=== PATIENT | female | born 1995 | race Caucasian/White ===

== ENCOUNTER 2019-12-03 01:42 | Emergency (ER) | payer OTHER ==
[~2019-12-03] VITALS: Ht 157.5 cm; Wt 75.0 kg
[2019-12-03 01:46] VITALS: BP 130/86
[2019-12-03] MEDS ORDERED: PAXIL (01:49)
--- NOTE | 2019-12-03 01:55 | NUR ---
PT SEATED IN CHAIR AT NURSES STATION, CLOSE OBSERVATION, IS PLEASANT AND COOPERATIVE, TEARFUL AND TALKING ON PHONE CURRENTLY. AWARE OF PLAN OF CARE AND PROCESS.
[2019-12-03 02:16] LABS: BASOPHILS # (AUTO) 0.05 x10^3/uL (0-0.1); BASOPHILS % (AUTO) 1 % (0-1); EOSINOPHILS # (AUTO) 0.22 x10^3/uL (0-0.4); EOSINOPHILS % (AUTO) 2 % (1-7); LYMPHOCYTES # (AUTO) 3.41 x10^3/uL (1-3.4); LYMPHOCYTES % (AUTO) 30 % (22-44); MD NO; MEAN CORPUSCULAR HEMOGLOBIN 29.6 pg (27.0-34.8); MEAN CORPUSCULAR VOLUME 89.7 fL (80-100); MEAN PLATELET VOLUME 8.3 fL (7.4-10.4); MONOCYTES # (AUTO) 0.53 x10^3/uL (0.2-0.8); MONOCYTES % (AUTO) 5 % (2-9); NEUTROPHILS # (AUTO) 7.05 x10^3/uL (1.8-6.8); NEUTROPHILS % (AUTO) 63 % (42-75); PLATELET COUNT 312 x10^3/uL (130-400); RED BLOOD COUNT 4.85 x10^6/uL (3.82-5.3); RED CELL DISTRIBUTION WIDTH 13.4 % (9.6-15.2)
--- NOTE | 2019-12-03 02:21 | NUR ---
PT MOVED TO SECURE ROOM, BELONGINGS SECURED
[2019-12-03 02:28] LABS: ALANINE AMINOTRANSFERASE 57 U/L (12-78); ALBUMIN 3.5 g/dL (3.4-5.0); ANION GAP 9 mmol/L (5-15); CALCIUM 8.6 mg/dL (8.5-10.1); CHLORIDE 111 mmol/L (98-107); CREATININE 0.94 mg/dL (0.55-1.02)
[2019-12-03 02:30] LABS: ALKALINE PHOSPHATASE 67 U/L (45-117); BILIRUBIN,TOTAL 0.3 mg/dL (0.2-1.0); TOTAL PROTEIN 7.8 g/dL (6.4-8.2)
[2019-12-03 02:32] LABS: SALICYLATE LEVEL < 1.7 mg/dL (2.8-20.0)
--- NOTE | 2019-12-03 02:32 | NUR ---
URINE COLLECTED AND SENT
--- NOTE | 2019-12-03 03:19 | NUR ---
Pt sleeping in gurney at this time with eyes closed, breathing equal and unlabored, NADN, garage doors down and room secured with light on for observation. Pending telepsych once pt is sober
[2019-12-03 03:30] LABS: AMPHETAMINE SCREEN, URINE Negative (Negative); BARBITURATE SCREEN, URINE Negative (Negative); BENZODIAZEPINE SCREEN, URINE Negative (Negative); CANNABINOID SCREEN, URINE Negative (Negative); COCAINE SCREEN, URINE Negative (Negative); METHADONE SCREEN, URINE Negative (Negative); OPIATE SCREEN, URINE Negative (Negative)
--- NOTE | 2019-12-03 04:30 | NUR ---
Pt laying on gurney, eyes closed at this time, appearing to be asleep. Pt respirations even and unlabored. RAVI at this time, will continue to monitor
--- NOTE | 2019-12-03 05:54 | NUR ---
Telepsych monitor placed in pt room. Pt drowsy at this time, requesting water. Pt provided with water and denies any further needs. Pt calm, cooperative, with NADN
--- NOTE | 2019-12-03 07:19 | NUR ---
Report from Vidya STEWART. Pt resting in bed with eyes closed, resp even and unlabored. Pt arousable to this RN calling her name. Pt reports "Not right now." when asked if she has thoughts of SI/HI. Pt reports thoughts of self harm in the past. Pt denies other needs at this time, POC discussed. Meal tray ordered for pt. Room is secured, camera on in room for q15 safety checks.
--- NOTE | 2019-12-03 08:54 | NUR ---
Report to Angelica STEWART. Pt ambulatory to rm 3 with steady gait. Pt now talking on phone with her in the hallway by her room in view of the sitter.
--- NOTE | 2019-12-03 10:52 | NUR ---
PT RESTING ON BED, NAD NOTED. NO NEEDS AT THIS TIME.
--- NOTE | 2019-12-03 13:04 | NUR ---
REPORT TO FRANKLIN RN, PT CLEARED BY PSYCH KETTLE TENDER, PT TO DC
== END 2019-12-03 13:32 | disposition home or self-care (01) ==
LOC: ED 09:18
DX: F10.220 Alcohol dependence with intoxication, uncomplicated (principal); G31.2 Degeneration of nervous system due to alcohol; F32.1 Major depressive disorder, single episode, moderate; F39 Unspecified mood [affective] disorder; R45.851 Suicidal ideations; Y90.0 Blood alcohol level of less than 20 mg/100 ml
CPT/HCPCS: 36415; 80053; 80307; 85025; 99283